=== PATIENT | male | born 1990 | race Two or more races ===

== ENCOUNTER 2016-09-16 16:28 | Emergency (ER) | payer MEDICAID ==
[~2016-09-16] VITALS: Ht 180.3 cm; Wt 130.6 kg
[2016-09-16 16:37] VITALS: BP 145/106
[2016-09-16] MEDS ORDERED: TETANUS-DIPTH-ACEL PERTUSSIS 0.5ML SYRG IM ONE (19:45)
[2016-09-16] MEDS ORDERED: BACITRACIN TOP OINT 1 UD PKG TOP ONE (19:45)
== END 2016-09-16 19:56 | disposition home or self-care (01) ==
LOC: ER 16:34
DX: T23.232A Burn of second degree of multiple left fingers (nail), not including thumb, initial encounter (principal); T31.0 Burns involving less than 10% of body surface; F12.10 Cannabis abuse, uncomplicated; J02.9 Acute pharyngitis, unspecified; W86.8XXA Exposure to other electric current, initial encounter; Y93.89 Activity, other specified; Y92.89 Other specified places as the place of occurrence of the external cause; Y99.0 Civilian activity done for income or pay
CPT/HCPCS: 16020; 90471; 90715

== ENCOUNTER 2017-08-25 10:32 | Inpatient (IN) | payer MEDICAID ==
[~2017-08-25] VITALS: Ht 177.8 cm; Wt 129.7 kg
[2017-08-25 11:58] LABS: Basophils # (auto) 0 uL; Basophils % (auto) 0.3 % (0.0-2.0); Eosinophils # (auto) 0.1 uL; Eosinophils % (auto) 1.3 % (0.0-7.0); Hematocrit 47.5 % (41.0-53.0); Hemoglobin 15.7 g/dL (13.5-17.5); Lymphocytes # (auto) 0.8 uL; Lymphocytes % (auto) 9.7 % (10.0-50.0); Mean Corpuscular Hemoglobin 29.5 pg (28.0-32.0); Mean Corpuscular Hgb Conc. 33.1 g/dL (32.0-36.0); Monocytes # (auto) 0.5 uL; Monocytes % (auto) 6.9 % (0.0-12.0); Neutrophils # (auto) 6.4 uL; Neutrophils % (auto) 81.8 % (37.0-80.0); Nucleated Red Blood Cells % 0.1 %; Platelet Count (auto) 200 10^3/uL (140-450); Red Blood Cells 5.34 10^6/uL (4.5-5.90); Red Cell Distribution Width 13.6 % (11.8-14.3); White Blood Cell 7.8 10^3/uL (4.4-10.8)
[2017-08-25 12:18] LABS: Albumin 3.5 g/dL (3.4-5.0); BUN/Creatinine Ratio 12.2; Bilirubin, Total 0.3 mg/dL (0.2-1.0); Calcium 8.5 mg/dL (8.5-10.1); Potassium 4.4 mmol/L (3.5-5.1); Total Protein 7.4 g/dL (6.4-8.2)
[2017-08-25] MEDS ORDERED: CLINDAMYCIN 900MG IV 50 ML IV ONE (12:45)
[2017-08-25] MEDS ORDERED: cefTRIAXone 1GM/10ml IVPUSH 10 ML IV ONE (12:45)
[2017-08-25] MEDS ORDERED: SODIUM CHLORIDE 0.9% 1,000 ML IV ONE ×2 (12:47)
[2017-08-25] MEDS ORDERED: IOHEXOL 300 MG/ML 100ML BOTTLE IJ ONE (14:53)
[2017-08-25] MEDS ORDERED: LORazepam 0.5 MG TAB PO PRN (15:00)
[2017-08-25] MEDS ORDERED: TEMAZEPAM 15 MG CAP PO PRN (15:00)
[2017-08-25] MEDS ORDERED: PROMETHAZINE HCL 25 MG/ML 1ML IV PRN (15:00)
[2017-08-25] MEDS ORDERED: MORPHINE SULFATE 4 MG/ML SYR/VIAL IV PRN (15:00)
[2017-08-25] MEDS ORDERED: ACETAMINOPHEN 500 MG TAB PO PRN (15:00)
[2017-08-25] MEDS ORDERED: NITROGLYCERIN 0.4 MG SL TAB SL PRN (15:00)
[2017-08-25] MEDS ORDERED: NORPTMEDS CO (15:10)
[2017-08-25] MEDS: SODIUM CHLORIDE 0.9% 1,000 ML IV SCH (15:16)
[2017-08-25] MEDS: HYDROcodone-ACET 5/325MG TAB PO PRN (19:03)
[2017-08-25] MEDS ORDERED: IBUP600T27 PO (19:51)
[2017-08-25] MEDS ORDERED: AMOX250C3 PO (19:51)
[2017-08-25] MEDS: MORPHINE SULFATE 4 MG/ML SYR/VIAL IV PRN (20:58)
[2017-08-25] MEDS: CLINDAMYCIN 600MG IV 50 ML IV SCH (20:58)
[2017-08-25 22:00] VITALS: BP 141/82
[2017-08-26] MEDS: MORPHINE SULFATE 4 MG/ML SYR/VIAL IV PRN ×2 (03:57→09:44)
[2017-08-26 05:30] VITALS: BP 133/77
[2017-08-26] MEDS: SODIUM CHLORIDE 0.9% 1,000 ML IV SCH (06:20)
[2017-08-26] MEDS: CLINDAMYCIN 600MG IV 50 ML IV SCH ×2 (06:20→14:00)
[2017-08-26] MEDS: HYDROcodone-ACET 5/325MG TAB PO PRN ×2 (06:21→12:50)
[2017-08-26 08:00] VITALS: BP 121/67
[2017-08-26 08:19] VITALS: BP 121/64
[2017-08-26] MEDS ORDERED: cefTRIAXone 1GM/10ml IVPUSH 10 ML IV SCH (09:00)
[2017-08-26 11:39] VITALS: BP 112/75
[2017-08-26] MEDS ORDERED: AMOXICILLIN/CLAVUL 875 MG TAB PO ONE (12:00)
== END 2017-08-26 14:00 | disposition home or self-care (01) | DRG 663 ==
LOC: ER 10:32 → TELE 10:33 → TELE-WESTW 19:40
PROVIDERS: ADMIT Internal Medicine; ATTEND Internal Medicine
DX: I88.9 Nonspecific lymphadenitis, unspecified (principal); Z68.41 Body mass index [BMI] 40.0-44.9, adult; E66.01 Morbid (severe) obesity due to excess calories; F12.90 Cannabis use, unspecified, uncomplicated; J03.90 Acute tonsillitis, unspecified; I89.1 Lymphangitis; Z80.0 Family history of malignant neoplasm of digestive organs; Z71.3 Dietary counseling and surveillance
CPT/HCPCS: 36415; 70491; 76536; 80053; 84443; 85025; 85652; 87040; 96361; 96365; 96375; J3490

== ENCOUNTER 2017-11-30 13:29 | Emergency (ER) | payer MEDICAID ==
[~2017-11-30] VITALS: Ht 177.8 cm; Wt 129.3 kg
[2017-11-30 14:17] VITALS: BP 133/82
[2017-11-30] MEDS ORDERED: methylPREDNISolone SOD SUCC 125 MG/2 ML VL IM ONE (15:15)
== END 2017-11-30 15:29 | disposition home or self-care (01) ==
LOC: ER 13:29
DX: J03.90 Acute tonsillitis, unspecified (principal)
CPT/HCPCS: 96372; 99283; J2930

== ENCOUNTER 2020-04-17 13:14 | Emergency (ER) | payer MEDICAID, OTHER ==
[~2020-04-17] VITALS: Ht 180.3 cm; Wt 129.3 kg
[2020-04-17 13:36] VITALS: BP 103/79
[2020-04-17] MEDS ORDERED: KETOROLAC TROMETH 60MG/2ML VIAL IM ONE (16:00)
[2020-04-17] MEDS ORDERED: HYDROcodone-ACET 10/325MG TAB PO ONE (16:00)
== END 2020-04-17 16:46 | disposition home or self-care (01) ==
LOC: ER 13:14
DX: M54.41 Lumbago with sciatica, right side (principal)
CPT/HCPCS: 96372; 99283; J1885

== ENCOUNTER 2020-12-23 16:04 | Emergency (ER) | payer OTHER ==
[~2020-12-23] VITALS: Ht 180.3 cm; Wt 129.3 kg
[2020-12-23 18:11] VITALS: BP 118/82
== END 2020-12-23 19:04 | disposition home or self-care (01) ==
LOC: ER 16:04
DX: S61.211A Laceration without foreign body of left index finger without damage to nail, initial encounter (principal); W26.0XXA Contact with knife, initial encounter; Y93.89 Activity, other specified; Y92.89 Other specified places as the place of occurrence of the external cause; Y99.8 Other external cause status
CPT/HCPCS: 12001